=== PATIENT | female | born 1955 | race Caucasian/White ===

== ENCOUNTER 2018-09-18 04:52 | Emergency (ER) | payer OTHER ==
[2018-09-18] MEDS ORDERED: diphenhydrAMINE INJ 50 MG/ML VIAL IVP STA (05:02)
[2018-09-18] MEDS ORDERED: FAMOTIDINE 20 MG/2 ML VIAL IVP STA (05:03)
[2018-09-18] MEDS ORDERED: methylPREDNISolone SUCCINATE 125 MG/2 ML VIAL IVP STA (05:03)
[2018-09-18] MEDS ORDERED: EPINEPHrine 1 MG/ML AMP IM STA (05:03)
[2018-09-18] MEDS ORDERED: SODIUM CHLORIDE 0.9% 1,000 ML IV ONE (05:05)
[2018-09-18 07:45] VITALS: BP 138/67
--- NOTE | 2018-09-18 20:26 | ED Physician Documentation ---
PD HPI SKIN - Stated complaint Stated Complaint: THROAT CLOSING,HIVES - Chief complaint Chief Complaint: Allergic Rx - History obtained from History obtained from: Patient - History of Present Illness Timing - onset: How many hours ago (2) Timing - duration: Hours (2) Timing - details: Abrupt onset Pain level max: 2 Pain level now: 2 Severity Comments: moderate Location: Face, Chest, Abdomen, Back, RUE, LUE (Hives) Quality / character: Itchy Improved by: Other (nothing) Contributing factors: Unknown (Exposed to lisinopril and chocolate w cardamum) Review of Systems Ten Systems: 10 systems reviewed and negative Constitutional: reports: Reviewed and negative Eyes: reports: Reviewed and negative Ears: reports: Reviewed and negative Nose: reports: Reviewed and negative Throat: reports: Other (Feels as if throat closing) Cardiac: reports: Reviewed and negative Respiratory: reports: Reviewed and negative GI: reports: Reviewed and negative : reports: Reviewed and negative Skin: reports: Rash (urticarial rash on trunk and BUE) Musculoskeletal: reports: Reviewed and negative Neurologic: reports: Reviewed and negative Psychiatric: reports: Reviewed and negative Endocrine: reports: Reviewed and negative Immunocompromised: reports: Reviewed and negative PD PAST MEDICAL HISTORY - Past Medical History Past Medical History: Yes Cardiovascular: Hypertension Endocrine/Autoimmune: Type 2 diabetes - Past Surgical History Past Surgical History: Yes HEENT: Tonsil/Adenoidectomy - Present Medications Home Medications: Ambulatory Orders Medication Instructions Recorded Confirmed Cetirizine [ZyrTEC] 10 mg PO DAILY #10 tablet 09/18/18 Dexamethasone [Decadron] 4 mg PO DAILY #5 tablet 09/18/18 - Allergies Allergies/Adverse Reactions: Allergies Allergy/AdvReac Type Severity Reaction Status Date / Time No Known Drug Allergies Allergy Verified 09/18/18 04:59 - Social History Does the pt smoke?: No Smoking Status: Never smoker Does the pt drink ETOH?: Yes ETOH Use: Beer Does the pt have substance abuse?: No - Immunizations Immunizations are current?: Yes PD ED PE NORMAL - Vitals Vital signs reviewed: Yes - General General: Alert and oriented X 3, No acute distress - HEENT HEENT: PERRL - Neck Neck: Supple, no meningeal sign - Cardiac Cardiac: RRR, No murmur - Respiratory Respiratory: Clear bilaterally - Abdomen Abdomen: Normal bowel sounds, Soft, Non tender, Non distended - Derm Derm: Warm and dry, Other (Urticarial rash on trunk and bilateral upper extremities.) - Extremities Extremities: No deformity - Neuro Neuro: Alert and oriented X 3 - Psych Psych: Normal mood, Normal affect Results - Vitals Vitals: Vital Signs - 24 hr 09/18/18 09/18/18 09/18/18 04:55 04:59 05:50 Temperature 36.5 C 36.5 C Heart Rate 79 76 77 Respiratory 16 16 18 Rate Blood Pressure 211/91 H 211/91 H 141/83 H O2 Saturation 99 99 99 09/18/18 07:45 Temperature Heart Rate 83 Respiratory 15 Rate Blood Pressure 138/67 H O2 Saturation 97 Oxygen O2 Source Room air PD MEDICAL DECISION MAKING - ED course Complexity details: reviewed results, re-evaluated patient, considered differential, d/w patient, d/w family ED course: 62-year-old female with anaphylaxis due to 2 lisinopril or possibly chocolate with cardiogram from [facility]. Patient with throat swelling as well as urticarial rash on the trunk and bilateral upper extremities. Patient given IM epinephrine, IV fluids, IV Solu-Medrol, IV Pepcid, IV Benadryl. Patient observed in the emergency department for 2 hours and signed out to incoming provider to continue observation with plan to discharge home with EpiPen if symptoms are improved. - Critical Care Time(min): 30 Time Includes: Direct patient care, Review records, Reassess patient, Document care, Coordinate care, Family consult for tx dec, See progress note Data interpretation: Pulse ox, See progress note Procedures included in critical care time: See progress note Procedures excluded from critical care time: See progress note Departure - Departure Disposition: 01 Home, Self Care Clinical Impression: Acute allergic reaction Qualifiers: Encounter type: initial encounter Qualified Code(s): T78.40XA - Allergy, unspecified, initial encounter Anaphylaxis Qualifiers: Encounter type: initial encounter Qualified Code(s): T78.2XXA - Anaphylactic shock, unspecified, initial encounter Condition: Stable Instructions: ED Allergic Reaction General Other Follow-Up: Aixa Tello MD [Primary Care Provider] - Prescriptions: Cetirizine [ZyrTEC] 10 mg PO DAILY #10 tablet Dexamethasone [Decadron] 4 mg PO DAILY #5 tablet Comments: Hold your lisinopril for a week or so. Avoid any other new or unusual foods you have had in the last couple of days. Continue cetirizine antihistamine daily for several days to week. Decadron steroid and daily for several days. If you do not have any further symptoms and are feeling well after those medicines and you can try the lisinopril again next week and see if you have any mild symptoms. If not she can resume it. You will be okay without the blood pressure medicine for a week. Discharge Date/Time: 09/18/18 08:40
== END 2018-09-18 08:40 | disposition home or self-care (01) ==
LOC: ED 04:52
DX: T88.6XXA Anaphylactic reaction due to adverse effect of correct drug or medicament properly administered, initial encounter (principal); T46.4X5A Adverse effect of angiotensin-converting-enzyme inhibitors, initial encounter; L50.0 Allergic urticaria; I10 Essential (primary) hypertension; E11.9 Type 2 diabetes mellitus without complications
CPT/HCPCS: 96361; 96372; 96374; 96375; 99283; 99291; J1200

== ENCOUNTER 2018-11-18 05:49 | Emergency (ER) | payer OTHER ==
[2018-11-18] MEDS ORDERED: diphenhydrAMINE INJ 50 MG/ML VIAL IVP STA (05:57)
[2018-11-18] MEDS ORDERED: methylPREDNISolone SUCCINATE 125 MG/2 ML VIAL IVP STA (05:57)
[2018-11-18] MEDS ORDERED: SODIUM CHLORIDE 0.9% 1,000 ML IV ONE (05:57)
[2018-11-18] MEDS ORDERED: FAMOTIDINE 20 MG/2 ML VIAL IVP STA (05:58)
--- NOTE | 2018-11-18 05:58 | ED Physician Documentation ---
History of Present Illness - Stated complaint Stated Complaint: SOA/SWOLLEN TONGUE - History obtained from History obtained from: Patient - History of Present Illness Timing: Prior to arrival - Additonal information Additional information: Patient is a 63-year-old female with history of high cholesterol and diabetes presenting with diffuse urticarial rash, swollen tongue and mouth, and difficulty breathing. Patient reported that she had a previous episode similar to her complaints today, which was contributed to the use of lisinopril. Patient stopped using lisinopril and changed to Lipitor about 1 month ago. Patient has had no episodes since that time until this morning. However, patient also noted that she ate estrada mushrooms for the first time last night and feels the mushrooms could be contributing to today's complaints. Patient denies other new foods, new medications, or other exposures. Patient took Benadryl 50 mg prior to arrival. No other worsening or improving factors to her symptoms noted. Review of Systems Throat: reports: Other (Mouth and tongue swelling) Respiratory: reports: Dyspnea PD PAST MEDICAL HISTORY - Past Medical History Cardiovascular: Hypertension Endocrine/Autoimmune: Type 2 diabetes - Past Surgical History Past Surgical History: Yes HEENT: Tonsil/Adenoidectomy - Present Medications Home Medications: Ambulatory Orders Medication Instructions Recorded Confirmed Aspirin Chewable [St Curt 1 tab PO DAILY 11/18/18 11/18/18 Aspirin] EPINEPHrine [Epinephrine] 0.3 mg IJ PRN PRN #2 auto.injct 11/18/18 Epinephrine [Auvi-Q] 0.3 mg IJ PRN PRN #2 auto.injct 11/18/18 Metformin HCl 500 mg PO BID 11/18/18 11/18/18 [place] 3,6,9 Combination No.7 2 tab PO QPM 11/18/18 11/18/18 [[place] Dha] Ubidecarenone [Co Q-10] 1 cap PO QPM 11/18/18 11/18/18 predniSONE [Deltasone] 10 mg PO [id number] #42 tab 11/18/18 predniSONE [Deltasone] 10 mg PO [id number] #42 tab 11/18/18 - Allergies Allergies/Adverse Reactions: Allergies Allergy/AdvReac Type Severity Reaction Status Date / Time No Known Drug Allergies Allergy Verified 11/18/18 06:21 - Social History Does the pt smoke?: No Smoking Status: Never smoker Does the pt drink ETOH?: Yes Does the pt have substance abuse?: No - Immunizations Immunizations are current?: Yes PD ED PE NORMAL - General General: Alert and oriented X 3, No acute distress, Well developed/nourished, Other (Speaking in full sentences) - HEENT HEENT: Atraumatic, Moist mucous membranes, Pharynx benign, Other (Mild appreciable tongue swelling, no significant lip swelling noted) - Cardiac Cardiac: RRR, No murmur - Respiratory Respiratory: No respiratory distress, Clear bilaterally - Derm Derm: Warm and dry. No: No rash (Diffuse, blanching slightly raised erythematous rash and hives scattered over trunk and extremities) - Extremities Extremities: No deformity, No tenderness to palpate - Neuro Neuro: Alert and oriented X 3, No motor deficit, No sensory deficit - Psych Psych: Normal mood, Normal affect Results - Vitals Vitals: Vital Signs - 24 hr 11/18/18 11/18/18 11/18/18 05:52 06:01 06:28 Temperature 36.8 C Heart Rate 74 68 77 Respiratory 20 16 16 Rate Blood Pressure 195/99 H 182/105 H 178/93 H O2 Saturation 99 99 98 11/18/18 11/18/18 11/18/18 06:39 06:41 06:53 Temperature 36.6 C Heart Rate 78 84 83 Respiratory 17 17 17 Rate Blood Pressure 172/85 H 172/85 H 172/85 H O2 Saturation 99 97 98 Oxygen O2 Source Room air PD MEDICAL DECISION MAKING - ED course Complexity details: re-evaluated patient, considered differential, d/w patient, d/w family ED course: Most concerning for allergic reaction, urticaria, anaphylaxis given patient's recent exposure to mushrooms and physical exam findings. Vital signs within normal limits upon arrival except for slightly elevated blood pressure, likely due to her symptoms. Repeat blood pressure measurements obtained and declined appropriately. Patient placed on monitors and IV access obtained immediately upon arrival. Patient started on epinephrine, Solu-Medrol, Benadryl, famotidine, and IV fluids. Also considered angioedema, particularly given history of lisinopril, although stopped about 1 month ago. Patient was started on lisinopril, which is less likely to cause such symptoms. Also feel that patient's recent exposure to mushrooms and subsequent symptoms point to the food exposure as the culprit. Patient will continue to be monitored in ED. However, do not feel she requires other invasive testing or imaging at this time.Patient had near immediate and significant improvement of her symptoms following medication administration. Patient continued to be monitored in the ED for about 2 hours without further issue or return of symptoms. Discussed home prescriptions, supportive cares, return precautions, and followup. Patient and voiced understanding and are comfortable with discharge plan. Of note, home prescriptions appear written twice due to computer error-only one of each given to patient. Departure - Departure Disposition: Home, Self Care Clinical Impression: Allergic reaction Qualifiers: Encounter type: initial encounter Qualified Code(s): T78.40XA - Allergy, unspecified, initial encounter Condition: Good Instructions: ED Allergic Reaction General Other Follow-Up: your,doctor [Other] - Within 3 Days Prescriptions: EPINEPHrine [Epinephrine] 0.3 mg IJ PRN PRN #2 auto.injct PRN Reason: Allergy Symptoms Epinephrine [Auvi-Q] 0.3 mg IJ PRN PRN #2 auto.injct PRN Reason: Allergy Symptoms predniSONE [Deltasone] 10 mg PO [id number] #42 tab predniSONE [Deltasone] 10 mg PO [id number] #42 tab Comments: May continue home medications as previously instructed. Please use steroids as instructed to help alleviate allergic symptoms or recurrence of symptoms. May also use topical steroids for itching as needed, as well as Benadryl 25-50 mg every 6-8 hours as needed. May also use EpiPen's as needed if symptoms severely recur. Please follow-up with primary care physician in next 2 to 3 days and return to ED sooner if experience worsening symptoms or other concerns.
[2018-11-18] MEDS ORDERED: EPINEPHrine 1 MG/ML AMP IM STA (06:00)
[2018-11-18 08:12] VITALS: BP 135/80
== END 2018-11-18 08:11 | disposition home or self-care (01) ==
LOC: ED 05:49
DX: T78.1XXA Other adverse food reactions, not elsewhere classified, initial encounter (principal); L50.0 Allergic urticaria; R22.0 Localized swelling, mass and lump, head; X58.XXXA Exposure to other specified factors, initial encounter; I10 Essential (primary) hypertension; E11.9 Type 2 diabetes mellitus without complications; Z79.84 Long term (current) use of oral hypoglycemic drugs; Z79.82 Long term (current) use of aspirin
CPT/HCPCS: 36415; 96361; 96372; 96374; 96375; 99283; 99285; J1200